=== PATIENT | male | born 1945 | race Caucasian/White ===

== ENCOUNTER 2017-01-14 11:23 | Emergency (ER) | payer OTHER ==
[~2017-01-14] VITALS: Ht 191.8 cm; Wt 80.7 kg
[2017-01-14] MEDS ORDERED: PANTOPRAZOLE SO40 M1 PO (12:00)
[2017-01-14] MEDS ORDERED: OXYCODONE-ACET1 EACH PO (12:00)
[2017-01-14] MEDS ORDERED: CIALIS10 M1 PO (12:01)
[2017-01-14] MEDS ORDERED: CLOTRIMAZOLE-BE15 GM TOP (12:01)
[2017-01-14] MEDS ORDERED: HYDROCHLOROTH12.5 M3 PO (12:01)
[2017-01-14] MEDS ORDERED: SYNTHROID (12:02)
[2017-01-14] MEDS ORDERED: SIMVASTATIN40 M1 PO (12:02)
[2017-01-14] MEDS ORDERED: LENVIMA (12:02)
--- NOTE | 2017-01-14 12:44 | ED UPPER/LOWER EXTREMITY COMPL ---
History of Present Illness General Chief Complaint: Shoulder Injury Stated Complaint: RT SHOULDER PAIN Source: patient Exam Limitations: no limitations Allergies Coded Allergies: No Known Allergies (01/14/17) Triage Note: PT STATES HE IS HAVING RIGHT SHOULDER PAIN THAT STARTED OVER THE PAST FEW MONTHS. PT WAS SEEING DR. JOSEPH . PT HAS CA ON C1 AND C2. PT WAS DOING THERAPY AND THE PAIN WAS MODERATE. PT STATES HE WAS FIXING HIS MAILBOX SWUNG THE HAMMER AND FELL IN THE SNOW. PT TOOK 2 OXYCODONE ABOUT 1 HOUR AGO AND STATES THE PAIN IS TOLERABLE. E Triage Nurses Notes Reviewed? yes HPI: This patient is a 71-year-old male with past medical history include thyroid cancer and cervical vertebral cancer who presented to the emergency department today for evaluation of right shoulder pain. The patient reported that he has had chronic right shoulder pain for a lot of his life. He reported that he has been undergoing physical therapy and management by Dr. Joseph, orthopedist, for his shoulder. He reported that he was getting more movement and mobility back and shoulder. Over the last week he had an MRI of his shoulder. However, approximately one week ago he slipped while he was fixing a mailbox and hurt his right shoulder. He denied head strike or loss of consciousness. The patient reported that over the last week the pain has been worse than normal. The pain gets up to a 10 out of 10. He does feel some, "pins and needles," in his right arm. He reported that the pain itself is nonradiating and stabbing. The pain is constant. The pain is felt primarily in the back of his shoulder. He reported that he is always had, "muscular shoulder pain worse with movement." The patient denied any fevers, chills, chest pain, difficulty breathing, palpitations, abdominal pain, or any other associated symptoms. The patient reported that he took 2 Percocet this morning with mild relief of symptoms, but reported that he can still feel the pain. (JUVENTINO RODRIGUEZ,RADAMES) Vital Signs & Intake/Output Vital Signs & Intake/Output ED Intake and Output 01/15 0000 01/14 1200 Intake Total Output Total Balance Patient 178 lb Weight Reconcile Medications Clotrimazole/Betamethasone Dip (Clotrimazole-Betamethasone Crm) 1 %-0.05 % CREAM..G. 1 TERESA TOP BID feet (Reported) apply to affected area(s) Cyclobenzaprine HCl 5 MG TABLET 1 TAB PO BID PRN MUSCLE SPASMS Hydrochlorothiazide 12.5 MG CAPSULE 1 CAP PO DAILY htn (Reported) Lenvatinib Mesylate (Lenvima) 14 MG/DAY CAPSULE 14 cancer (Reported) Meloxicam (Mobic) 15 MG TABLET 1 TAB PO DAILY PRN SHOULDER PAIN Oxycodone HCl/Acetaminophen (Oxycodone-Acetaminophen 5-325) 5 MG-325 MG TABLET 1 TAB PO BIDP PRN shoulder pain (Reported) Pantoprazole Sodium 40 MG TABLET.DR 1 TAB PO DAILY acid reflux (Reported) Simvastatin (Simvastatin*) 40 MG TABLET 1 TAB PO QPM high cholesterol ( Reported) [SYNTHROID - 200 MCG] hypothyroid (Reported) Tadalafil (Cialis) 10 MG TABLET 1 TAB PO DAILY prn (Reported) (MAXIMUS GREEN,YULISA) Past History Travel History Traveled to [place] past 21 day No Medical History Any Pertinent Medical History? see below for history Cardiovascular: aortic aneurysm, hyperlipidemia Cancer(s): thyroid cancer, C1 AND C2 CANCER Influenza Vaccine: 08/24/20 Surgical History Surgical History: non-contributory Psychosocial History What is your primary language Welsh Tobacco Use: Quit >30 days ago ETOH Use: occasional use Illicit Drug Use: denies illicit drug use Family History Hx Contributory? No (RADAMES JAUREGUI PA-C) Review of Systems Review of Systems Constitutional: Reports: no symptoms. EENTM: Reports: no symptoms. Respiratory: Reports: no symptoms. Cardiovascular: Reports: no symptoms. Gastrointestinal/Abdominal: Reports: no symptoms. Genitourinary: Reports: no symptoms. Musculoskeletal: Reports: see HPI. Skin: Reports: no symptoms. Neurological/Psychological: Reports: see HPI. All Other Systems: Reviewed and Negative (RADAMES JAUREGUI PA-C) Physical Exam Physical Exam General Appearance: well developed/nourished, no apparent distress, alert, awake Comments: Well-developed well-nourished person in no acute distress HEENT: Normal EENT exam, head normocephalic, moist mucous membranes Neck: No midline tenderness. Full range of motion Back: Normal gait. Normal inspection Cardiovascular: Regular rate and rhythm with no murmurs Right upper extremity: No effusions overlying erythema or ecchymosis to the joint spaces. No bony or muscular deformities noted. Tenderness to palpation over the posterior aspect of the shoulder over the musculature. Range of motion of the shoulder limited due to pain. Able to abduct the shoulder to 90. Full range of motion at the elbow and wrist. Radial brachial pulses 2+ and strong. Capillary refill less than 2 seconds. Neuro: Alert oriented x3, cranial nerves II through XII grossly intact. Skin: No appreciable rash on exposed skin, skin is warm and dry. Psych: Mood and affect is normal, memory and judgment is normal. (JUVENTINO RODRIGUEZ,RADAMES) Progress Differential Diagnosis: arterial insufficiency, cellulitis, CHF, compartment syndrome, contusion, dislocation, DVT, fracture, gout, septic arthritis, sprain, tendon injury Plan of Care: Orders Procedure Date/time Status CT UPPER EXT WO IV CONTRAST 01/14 1214 Active Diagnostic Imaging: Viewed by Me: CT Scan. Discussed w/RAD: CT Scan. Radiology Impression: PATIENT: NANDO MARC PRESENT AGE: 71 PATIENT ACCOUNT NO: [id number] : 47 LOCATION: [facility] ORDERING PHYSICIAN: RADAMES JAUREGUI PA-C SERVICE DATE: 01/14/17 EXAM TYPE: CAT - CT UPPER EXT WO IV CONTRAST EXAMINATION: CT UPPER EXTREMITY WITHOUT CONTRAST, RIGHT CLINICAL INFORMATION: Fall with right shoulder pain. Evaluate for shoulder injury. COMPARISON: MRI of the cervical spine 01/07/2017. X-ray of the right shoulder 05/08/2015. TECHNIQUE: Helical scanning was performed with submillimeter collimation in the axial plane with multiplanar 2-D reconstructions. DLP: 506.88 mGy-cm FINDINGS: There is partial visualization of the large right intraosseous/paraspinal cervicothoracic junction mass, which is described in detail on the prior MRI of the cervical spine. There are pulmonary nodules in the superior segment of the right lower lobe measuring 1 cm, and anterior aspect of the right upper lobe, measuring 1.3 cm, suspicious for metastatic disease. There is no fracture or malalignment in the right shoulder. There are mild degenerative changes. There is a small subacromial spur. There are no definite suspicious lytic or sclerotic lesions involving the right shoulder. IMPRESSION: 1. Partial visualization of a large right intraosseous/ paraspinal cervicothoracic junction mass, described in detail on the prior MRI of the cervical spine. Two nodules visualized in the partially imaged right lung , suspicious for metastatic disease. 2. Mild degenerative changes of the right shoulder joint with no evidence of acute injury. DICTATED BY: VELASQUEZ BROWN MD DATE/TIME DICTATED:01/14/171236 SPINNING FRAME CLEANER:TISH DATE/TIME TRANSCRIBED:01/14/171236 CONFIDENTIAL, DO NOT COPY WITHOUT APPROPRIATE AUTHORIZATION. <Electronically signed in Other Vendor System> SIGNED BY: VELASQUEZ BROWN MD 01/14/17 1312 Comments: 01/14/2017 1:28:34 PM: Multiple lung nodules were seen on CT scan of the right shoulder. I discussed this with the patient who reported that he knows of these nodules. I did discuss with him the possibility that these nodules could be causing the pain that he is having in his right shoulder. Offered to do a further workup with blood work and a CT scan of the chest and abdomen to rule out any metastatic disease. The patient is declining at this time. Reported that he would like something to help with the muscular pain and he is going to follow up with his doctor. Discussed this patient with Dr. STROUD who is in agreement with the plan. (RADAMES JAUREGUI PA-C) Departure Departure Disposition: HOME OR SELF CARE Condition: Stable Clinical Impression Primary Impression: Shoulder pain Qualifiers: Laterality: right Chronicity: unspecified Qualified Code: M25.511 - Pain in right shoulder Referrals: RANDALL GREEN,JASEN Aquino (PCP/Family) Additional Instructions: Please take medication as prescribed for pain and inflammation. Take Flexeril as prescribed for muscle relaxation. This medication may make you drowsy, so please avoid operating any vehicles while taking this medication. Rest your arm. You may apply ice or heat the affected area as needed. Please follow-up with your orthopedist. Return for any worsening symptoms or concerns. Departure Forms: Customer Survey General Discharge Information Prescriptions: Current Visit Scripts Meloxicam (Mobic) 1 TAB PO DAILY PRN SHOULDER PAIN #10 TAB Cyclobenzaprine HCl 1 TAB PO BID PRN MUSCLE SPASMS #10 TAB (RADAMES JAUREGUI PA-C) PA/CENTRAL OFFICE INSTALLER Co-Sign Statement Statement: ED Attending supervision documentation- x I saw and evaluated the patient. I have also reviewed all the pertinent lab results and diagnostic results. I agree with the findings and the plan of care as documented in the PA's/CENTRAL OFFICE INSTALLER's documentation. [] I have reviewed the ED Record and agree with the PA's/CENTRAL OFFICE INSTALLER's documentation. [] Additions or exceptions (if any) to the PAs/CENTRAL OFFICE INSTALLER's note and plan are summarized below: [] (MAXIMUS GREEN,YULISA)
--- NOTE | 2017-01-14 13:12 | CT SCAN REPORT ---
EXAMINATION: CT UPPER EXTREMITY WITHOUT CONTRAST, RIGHT CLINICAL INFORMATION: Fall with right shoulder pain. Evaluate for shoulder injury. COMPARISON: MRI of the cervical spine 01/07/2017. X-ray of the right shoulder 05/08/2015. TECHNIQUE: Helical scanning was performed with submillimeter collimation in the axial plane with multiplanar 2-D reconstructions. DLP: 506.88 mGy-cm FINDINGS: There is partial visualization of the large right intraosseous/paraspinal cervicothoracic junction mass, which is described in detail on the prior MRI of the cervical spine. There are pulmonary nodules in the superior segment of the right lower lobe measuring 1 cm, and anterior aspect of the right upper lobe, measuring 1.3 cm, suspicious for metastatic disease. There is no fracture or malalignment in the right shoulder. There are mild degenerative changes. There is a small subacromial spur. There are no definite suspicious lytic or sclerotic lesions involving the right shoulder. IMPRESSION: 1. Partial visualization of a large right intraosseous/paraspinal cervicothoracic junction mass, described in detail on the prior MRI of the cervical spine. Two nodules visualized in the partially imaged right lung, suspicious for metastatic disease. 2. Mild degenerative changes of the right shoulder joint with no evidence of acute injury.
[2017-01-14] MEDS ORDERED: MOBIC15 M1 PO (13:31)
[2017-01-14] MEDS ORDERED: CYCLOBENZAPRINE5 M2 PO (13:31)
[2017-01-14 14:09] VITALS: BP 146/78
== END 2017-01-14 14:11 ==
LOC: ERH 11:23
DX: M25.511 Pain in right shoulder (principal)